=== PATIENT | male | born 1990 ===

== ENCOUNTER 2018-05-17 21:55 | Emergency (ER) | payer SELFPAY ==
[2018-05-17 22:02] VITALS: RESP 16
--- NOTE | 2018-05-17 22:02 | C.PDOC ---
History Of Present Illness 27 yr old male w/ hx of etoh abuse BIBA from for etoh abuse. He notes that he drinks everyday. He denies any symptoms of withdrawal currently and notes only R elbow pain. No head impact. No abdominal pain. No GI or gu complaints. No blood thinner usage. No fever, chills or night sweats. No other complaints. Time Seen by Provider: 05/17/18 22:02 Chief Complaint (Nursing): Substance Abuse Past Medical History Family History: States: Unknown Family Hx Review Of Systems Constitutional: Negative for: Fever, Chills Eyes: Negative for: Pain ENT: Negative for: Ear Pain, Ear Discharge, Nose Congestion, Mouth Pain Cardiovascular: Negative for: Chest Pain, Palpitations, Edema Respiratory: Negative for: Cough, Shortness of Breath Gastrointestinal: Negative for: Nausea, Vomiting, Abdominal Pain Genitourinary: Negative for: Dysuria, Frequency, Scrotal Pain, Penile Pain Musculoskeletal: Positive for: Arm Pain (r elbow). Negative for: Neck Pain Neurological: Negative for: Weakness, Headache Physical Exam - Physical Exam Appears: Well, Non-toxic, No Acute Distress, Other (appears intoxicated, smells of etoh) Skin: Normal Color, Warm, Dry Head: Atraumatic, Normacephalic, No Tenderness, No Swelling, No Abrasion, No Laceration Eye(s): bilateral: Normal Inspection, PERRL, EOMI Ear(s): Bilateral: Normal Nose: Normal, No Flaring, No Septal Hematoma Oral Mucosa: Moist Tongue: Normal Appearing Lips: Normal Appearing Gingiva: Normal Appearing Throat: Normal, No Erythema, No Drooling Neck: Normal, Normal ROM, Supple, Other (no meningeal signs) Chest: Symmetrical, No Deformity, No Tenderness Cardiovascular: Rhythm Regular Respiratory: Normal Breath Sounds Gastrointestinal/Abdominal: Normal Exam Back: Normal Inspection, No CVA Tenderness, No Vertebral Tenderness Extremity: Normal ROM, No Tenderness, No Swelling Extremity: Right: Other (RUE: R elbow pain. No difficulty w/ passive or active ROM. No erythema. No snuffbox tenderness or UCL pain. Good N/V status distal in all extremities), Bilateral: Atraumatic (L/E and LUE), Hips Non-Tender, No Pedal Edema, Normal Color And Temperature, Normal ROM Pulses: Left Radial: Normal, Right Radial: Normal, Left Dorsalis Pedis: Normal, Right Dorsalis Pedis: Normal Neurological/Psych: Oriented x3, Normal Speech, Normal Cognition ED Course And Treatment - Laboratory Results Result Diagrams: 05/17/18 22:30 05/17/18 22:30 Medical Decision Making Medical Decision Makin yr old male w/ hx of etoh abuse p/w etoh intoxication and R elbow pain. No chest pain or sob or headache. No meningeal signs. No GI or complaints. Given first visit as well as fall will seek baseline labs, XR and CT. He denies being on blood thinners pending labs, imaging and reassessment. 2257 labs largely unremarkable pt in NAD pending imaging 2321 CT unremarkable xray unremarkable pending clinical sobreity 0248 clinical sober w/ out signs of withdrawal neuro exam unremarkable, no cerebellar signs steady gait pt in NAD clear for d/c home given R arm sling, good n/v status post placement. Endorsed to cut down on etoh use and f/u w/ primary / clinic for etoh use and R elbow pain. pt agreeable Disposition - Disposition Disposition Time: 02:47 Condition: GOOD Forms: [facility] (Nepali) - Clinical Impression Clinical Impression: Elbow pain, right, Alcohol intoxication
[2018-05-17 22:38] LABS: BASO % 0.2 % (0.0-2.0); EOS # 0.1 K/uL (0.0-0.7); LYMPH # 1.6 K/uL (1.0-4.3); LYMPH % 30.2 % (20.0-40.0); MEAN CELL VOLUME 87.2 fL (80.0-94.0); MEAN CORPUSCULAR HEMOGLOBIN 28.7 pg (27.0-31.0); MEAN CORPUSCULAR HGB CONC 32.9 g/dL (33.0-37.0); MEAN PLATELET VOLUME 7.6 fL (7.2-11.7); MONO # 0.5 K/uL (0.0-0.8); MONO % 9.1 % (0.0-10.0); NEUT # 3.2 K/uL (1.8-7.0); NEUT % 59.5 % (50.0-75.0); NRBC % 0.2 % (0.0-2.0); RBC 4.52 Mil/uL (4.40-5.90); RED CELL DISTRIBUTION WIDTH 16.2 % (11.5-14.5); WHITE BLOOD COUNT 5.4 K/uL (4.8-10.8)
[2018-05-17 22:53] LABS: ALB/GLOB RATIO 1.2 (1.0-2.1); ALBUMIN 4.4 g/dL (3.5-5.0); ALT/SGPT 53 U/L (21-72); AST/SGOT 100 U/L (17-59); BLOOD UREA NITROGEN 20 mg/dL (9-20); CALCIUM 8.7 mg/dl (8.6-10.4); GFR NON-AFRICAN AMERICAN > 60
[2018-05-18 02:31] VITALS: BP 117/62; PULSE 94; TEMP 98.3; O2SAT 95
--- NOTE | 2018-05-18 09:08 | RAD ---
Date of service: 05/17/2018 HISTORY: fall COMPARISON: None available. FINDINGS: LUNGS: There is a small nodular density seen in the left upper lung field overlying the left 1st rib. Followup nonemergent CT scan of the chest recommended for further evaluation. PLEURA: No significant pleural effusion identified, no pneumothorax apparent. CARDIOVASCULAR: No aortic atherosclerotic calcification present. Normal cardiac size. No pulmonary vascular congestion. OSSEOUS STRUCTURES: No significant abnormalities. VISUALIZED UPPER ABDOMEN: Normal. OTHER FINDINGS: None. IMPRESSION: No acute consolidation. Small nodule left upper lobe. Followup nonemergent CT scan of the chest recommended. Note that this report was placed in PA review folder for followup.
--- NOTE | 2018-05-18 09:36 | RAD ---
Date of service: 05/17/2018 PROCEDURE: Radiographs of the right elbow. HISTORY: fall COMPARISON: No prior. FINDINGS: BONES: Normal. No fracture. JOINTS: Normal. No osteoarthritis. SOFT TISSUES: Normal. JOINT EFFUSION: None. OTHER FINDINGS: None. IMPRESSION: Unremarkable radiographs of the right elbow.
--- NOTE | 2018-05-18 09:52 | CT ---
Date of service: 05/18/2018 PROCEDURE: CT HEAD WITHOUT CONTRAST. HISTORY: fall COMPARISON: None available. TECHNIQUE: Axial computed tomography images were obtained through the head/brain without intravenous contrast. Radiation dose: Total exam DLP = 897.71 mGy-cm. This CT exam was performed using one or more of the following dose reduction techniques: Automated exposure control, adjustment of the mA and/or kV according to patient size, and/or use of iterative reconstruction technique. FINDINGS: HEMORRHAGE: No intracranial hemorrhage. BRAIN: No mass effect or edema. No atrophy or chronic microvascular ischemic changes. VENTRICLES: No hydrocephalus. CALVARIUM: Unremarkable. PARANASAL SINUSES: Unremarkable as visualized. No significant inflammatory changes. MASTOID AIR CELLS: Unremarkable as visualized. No inflammatory changes. OTHER FINDINGS: None. IMPRESSION: No acute intracranial pathology identified. Bilateral nasal bone deformities appear chronic; correlate clinically to exclude possibility of acute fractures. Preliminary impression was provided by [facility]. Study marked for PA review.
--- NOTE | 2018-05-18 09:59 | CT ---
Date of service:05/18/2018 CT cervical spine without IV contrast Indication: fall Comparison: None available Technique: Axial computed tomography images were obtained of the cervical spine without the use of intravenous contrast. Coronal and sagittal reformatted images were created and reviewed. This CT exam was performed using 1 or more of the following dose reduction techniques: Automated exposure control, adjustment of the MAA and/or kV according to patient size, and/or use of iterative reconstruction technique. Radiation dose: Total exam DLP = 605.52 mGy-cm. Findings: Straightening of the normal cervical lordosis may be related to muscle spasm or positioning. There is no evidence of acute fracture or subluxation. Minimal scattered degenerative changes. There is preserved alignment, vertebral body height, intervertebral disc spaces. The prevertebral soft tissues and spinolaminar lines appear intact. The lateral masses are preserved. The dens tip is intact. There is proper alignment of the lateral masses of C1 with the C2 vertebral body. Included portions of the thyroid gland appear unremarkable. Included portions of lung apices appear clear. Impression: Straightening of the normal cervical lordosis may be related to muscle spasm or positioning. No evidence of acute fracture or subluxation. Preliminary impression was provided by [facility].
== END 2018-05-18 03:07 | disposition home or self-care (01) ==
LOC: C.ER 21:55
DX: F10.129 Alcohol abuse with intoxication, unspecified (principal); Y90.9 Presence of alcohol in blood, level not specified; M25.521 Pain in right elbow

== ENCOUNTER 2018-05-18 12:57 | Emergency (ER) | payer SELFPAY ==
[2018-05-18 13:07] VITALS: O2SAT 97
[2018-05-18 13:08] VITALS: BMI 22.6
--- NOTE | 2018-05-18 14:26 | C.PDOC ---
History Of Present Illness 27 year old male is brought to the ED by EMS for public intoxication. Patient admits to drinking alcohol today. Patient was seen for the first time yesterday for public intoxication also. Patient denies SI/HI, hallucinations, injury, fall, trauma, rash, CP, SOB, abdominal pain. Time Seen by Provider: 05/18/18 13:04 Chief Complaint (Nursing): Substance Abuse History Per: Patient, EMS History/Exam Limitations: intoxication Onset/Duration Of Symptoms: Hrs Current Symptoms Are (Timing): Still Present Suicide/Self Injury Attempted (Context): None Modifying Factor(s): Alcohol Associated Symptoms: denies: Depression, Suicidal Thoughts, Suicidal Plan Additional History Per: Patient, EMS Past Medical History Reviewed: Historical Data, Nursing Documentation, Vital Signs Vital Signs: Last Vital Signs Temp 98.2 F 05/18/18 13:07 Pulse 90 05/18/18 13:07 Resp 18 05/18/18 13:07 BP 127/74 05/18/18 13:07 Pulse Ox 97 05/18/18 13:07 - Medical History PMH: No Chronic Diseases Surgical History: No Surg Hx Family History: States: Unknown Family Hx - Social History Hx Alcohol Use: Yes Hx Substance Use: No Review Of Systems Constitutional: Negative for: Fever, Chills Cardiovascular: Negative for: Chest Pain Respiratory: Negative for: Cough, Shortness of Breath Gastrointestinal: Negative for: Nausea, Vomiting, Abdominal Pain Skin: Negative for: Rash Psych: Negative for: Depression, Suicidal ideation Physical Exam - Physical Exam Appears: Non-toxic, No Acute Distress, Other (AOB ) Skin: Normal Color, Warm, Dry Head: Atraumatic, Normacephalic Eye(s): bilateral: Normal Inspection Neck: Normal ROM, Supple Chest: Symmetrical Cardiovascular: Rhythm Regular Respiratory: Normal Breath Sounds, No Rales, No Rhonchi, No Wheezing Gastrointestinal/Abdominal: Soft, No Tenderness, No Guarding, No Rebound, No Ascites Extremity: Normal ROM, No Tenderness, No Other Neurological/Psych: Oriented x3, Normal Speech, Normal Cognition Gait: Steady ED Course And Treatment O2 Sat by Pulse Oximetry: 97 (ON RA) Pulse Ox Interpretation: Normal Medical Decision Making Medical Decision Making: Plan: * pending sobriety * 1730: slept in ED over 4 hours- clinically sober ok for d/c. Disposition Doctor Will See Patient In The: Office Counseled Patient/Family Regarding: Studies Performed, Diagnosis - Disposition Disposition: HOME/ ROUTINE Disposition Time: 17:20 Condition: GOOD Forms: [facility] (Welsh) - Clinical Impression Clinical Impression: Alcohol abuse - Scribe Statement The provider has reviewed the documentation as recorded by the Scribe Roderick Walsh All medical record entries made by the Nedaibe were at my direction and personally dictated by me. I have reviewed the chart and agree that the record accurately reflects my personal performance of the history, physical exam, medical decision making, and the department course for this patient. I have also personally directed, reviewed, and agree with the discharge instructions and d isposition.
[2018-05-18 15:19] VITALS: BP 116/63; PULSE 84; RESP 13; TEMP 98.1
== END 2018-05-18 17:33 | disposition home or self-care (01) ==
LOC: C.ER 12:57
DX: F10.10 Alcohol abuse, uncomplicated (principal)